=== PATIENT | female | born 1930 | race Caucasian/White ===

== ENCOUNTER 2016-11-29 22:59 | Inpatient (IN) ==
[2016-11-30 00:24] LABS: Basophils # 0.1 K/mcL (0.0-0.2); Basophils % 0.5 %; Eosinophils # 0.1 K/mcL (0.0-0.6); Eosinophils % 1.4 %; Hematocrit 43.4 % (35.3-44.9); Hemoglobin 13.8 g/dL (11.5-15.4); Immature Granulocytes % 0.2 % (0-4); Immature Platelets 3.4 % (1.1-6.1); Lymphocytes # 2.3 K/mcL (0.6-4.6); Mean Corpuscular HGB Conc 31.8 g/dL (31.6-35.5); Mean Corpuscular Hemoglobin 29.2 pg (28.0-33.3); Mean Corpuscular Volume 91.8 fL (83.0-100.0); Mean Platelet Volume 10.1 fL (9.4-12.4); Monocytes # 0.7 K/mcL (0.0-1.3); Monocytes % 7.8 %; Neutrophils # 6.2 K/mcL (1.6-8.9); Platelet Count 273 K/mcL (140-400); Red Blood Count 4.73 M/mcL (3.82-4.97); Red Cell Distribution Width 13.5 % (11.5-14.5); Segmented Neutrophils % 66.1 %
[2016-11-30 00:31] LABS: INR 1.1; Prothrombin Time 11.8 Seconds (9.4-12.1)
[2016-11-30 00:33] LABS: Activated Partial Thrombo Time 35.9 Seconds (26.0-36.0)
[2016-11-30 00:37] LABS: Calcium 9.4 mg/dL (8.6-10.8); Potassium 4.1 mEq/L (3.5-4.5)
--- NOTE | 2016-11-30 00:39 | Emergency Department Note ---
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 Denies: chest pain, shortness of breath, syncope, near-syncope, nausea, vomiting, anxiety, diaphoresis, cough, paresthesias, muscle cramps Treatments prior to arrival: other (None) - Related Data Allergies Allergy/AdvReac Type Severity Reaction Status Date / Time No Known Allergies Allergy Verified 11/29/16 23:02 All systems ED: reviewed and negative except as stated. Constitutional: Denies: fever, chills, weakness Eyes: Denies: vision change Cardiovascular: Denies: chest pain, palpitations, dyspnea on exertion, orthopnea , edema, syncope Respiratory: Denies: cough, dyspnea Gastrointestinal: Denies: abdominal pain, nausea, vomiting Neurological: Denies: headache, weakness, numbness, paresthesias, vertigo Endocrine: Denies: fatigue Past Medical History - Past Medical History Attestation: Yes The following information was validated with the patient. Source: old records reviewed, nursing notes reviewed Medical history: Reports: hyperlipidemia, hypertension Psychiatric history: Reports: anxiety - Social History Smoking Status: Never smoker Smokeless Tobacco Status: No Alcohol use: Reports: none Drug use: Reports: none Physical Exam - General Limitations: no limitations General appearance: alert, in no apparent distress - Head Head exam: atraumatic, normocephalic, normal inspection - Eye Eye exam: Present: normal appearance, PERRL. Absent: scleral icterus, conjunctival injection, periorbital swelling - ENT ENT exam: normal exam, normal oropharynx, mucous membranes moist - Neck Neck exam: Present: normal inspection, full ROM, trachea midline. Absent: meningismus - Chest Chest inspection: Present: normal inspection - Respiratory Respiratory exam: Present: normal lung sounds bilaterally. Absent: respiratory distress, wheezes, stridor - Cardiovascular Cardiovascular exam: Present: bradycardia, irregular rhythm, systolic murmur - Abdominal Exam Abdominal exam: Present: soft, Non-Tender. Absent: distention, guarding, mass, pulsatile mass - Extremities Exam Extremities exam: Present: normal inspection, normal capillary refill. Absent: pedal edema - Expanded Lower Extremity Exam Gait: not tested/not observed - Neurological Exam Neurological exam: Present: alert - Expanded Neurological Exam Patient oriented to: Present: person, place Speech: Present: fluid speech Cranial nerves: EOM function (II, III, IV, ): Normal Motor strength - LUE: 5/5 Motor strength - RUE: 5/5 Motor strength - LLE: 5/5 Motor strength - RLE: 5/5 Coma Scale Eye Opening: Spontaneous Coma Scale Motor Response: Obeys Commands Coma Scale Verbal Response: Confused (baseline) Coma Scale Total: 14 - Psychiatric Psychiatric exam: Present: normal affect, normal mood - Skin Skin exam: Present: warm, dry, intact, normal color Course Course Narrative: Patient was sent to the ER from [facility] for evaluation of a low heart rate. She is currently having no complaints. She is pleasantly confused. I spoke with the nurse at [facility] who states that they received a copy of the patient 's EKG report from the 6th. She saw that the patient had a heart rate of 39. At that time and that the physician had written on the chart: "Asymptomatic no meds, florist manager SHREYA." The nurse checked the patient's heart rate and as it was low, she sent the patient to the ER. Patient's blood pressure is elevated as it has been in the past per her nurse. Heart rate has been in the 40s. She appears to be in complete heart block. Her chest x-ray shows mild pulmonary vascular congestion and cardiomegaly. Her labs are essentially normal with the exception of mild renal insufficiency. Her TSH is normal. Urinalysis is pending. I spoke with Dr. Figueroa regarding the best course of action for this patient. He states that since she is stable with no complaints and a normal blood pressure. It is okay to monitor her tonight and treat her blood pressure. She can be seen by the driver's education instructor in the morning and will most likely have a pacemaker placed tomorrow. The case has been discussed with Dr. Mike welsh. She has seen the patient, reviewed the EKG and lab findings and agrees with the assessment and plan. - Consultations Consultation #1: The case was discussed with Dr. Figueroa, the florist manager on-call. He states that since the patient is currently stable with a normal blood pressure. He does not feel that she needs a temporary pacemaker at this time. He recommends that we admit the patient to the ICU. He agrees with the plan to use lisinopril to treat her blood pressure as it is currently elevated. Time: 01:57 Vital Signs Temperature 97.5 F L 11/29/16 23:02 Pulse Rate 44 11/29/16 23:02 Respiratory Rate 16 11/29/16 23:02 Blood Pressure 190/70 11/29/16 23:02 O2 Sat by Pulse Oximetry 96 11/29/16 23:02 Temperature 97.5 F L 11/29/16 23:02 Pulse Rate 37 11/30/16 00:52 Respiratory Rate 16 11/30/16 00:52 Blood Pressure 194/80 11/30/16 00:52 O2 Sat by Pulse Oximetry 96 11/30/16 00:52 Oxygen Delivery Oxygen Delivery Room Air Arrhythmia/Palpitations - Medical Records Medical records reviewed: Yes I reviewed the patient's medical records. - Lab Data Lab results reviewed: Yes I reviewed the patient's lab results. Lab results narrative: Laboratory Last Values WBC 9.4 K/mcL (4.3-11.1) 11/29/16 23:57 RBC 4.73 M/mcL (3.82-4.97) 11/29/16 23:57 Hgb 13.8 g/dL (11.5-15.4) 11/29/16 23:57 Hct 43.4 % (35.3-44.9) 11/29/16 23:57 MCV 91.8 fL (83.0-100.0) 11/29/16 23:57 MCH 29.2 pg (28.0-33.3) 11/29/16 23:57 MCHC 31.8 g/dL (31.6-35.5) 11/29/16 23:57 RDW 13.5 % (11.5-14.5) 11/29/16 23:57 Plt Count 273 K/mcL (140-400) 11/29/16 23:57 MPV 10.1 fL (9.4-12.4) 11/29/16 23:57 Immature Gran % 0.2 % (0-4) 11/29/16 23:57 Seg Neutrophils % 66.1 % 11/29/16 23:57 Lymphocytes % 24.0 % 11/29/16 23:57 Monocytes % 7.8 % 11/29/16 23:57 Eosinophils % 1.4 % 11/29/16 23:57 Basophils % 0.5 % 11/29/16 23:57 Neutrophils # 6.2 K/mcL (1.6-8.9) 11/29/16 23:57 Lymphocytes # 2.3 K/mcL (0.6-4.6) 11/29/16 23:57 Monocytes # 0.7 K/mcL (0.0-1.3) 11/29/16 23:57 Eosinophils # 0.1 K/mcL (0.0-0.6) 11/29/16 23:57 Basophils # 0.1 K/mcL (0.0-0.2) 11/29/16 23:57 Immature Plt Fraction 3.4 % (1.1-6.1) 11/29/16 23:57 PT 11.8 Seconds (9.4-12.1) 11/29/16 23:57 INR 1.1 11/29/16 23:57 APTT 35.9 Seconds (26.0-36.0) 11/29/16 23:57 Sodium 140 mEq/L (136-145) 11/29/16 23:57 Potassium 4.1 mEq/L (3.5-4.5) 11/29/16 23:57 Chloride 109 mEq/L (98-109) 11/29/16 23:57 Carbon Dioxide 19 mEq/L (19-29) 11/29/16 23:57 BUN 34 mg/dL (7-20) H 11/29/16 23:57 Creatinine 1.22 mg/dL (0.57-1.11) H 11/29/16 23:57 Est GFR ( Amer) 51 (> 60) L 11/29/16 23:57 Est GFR (Non-Af Amer) 42 (> 60) L 11/29/16 23:57 BUN/Creatinine Ratio 28 (6-26) H 11/29/16 23:57 Glucose 77 mg/dL (70-99) 11/29/16 23:57 Calculated Osmolality 296 (280-300) 11/29/16 23:57 Calcium 9.4 mg/dL (8.6-10.8) 11/29/16 23:57 Magnesium 2.3 mg/dL (1.6-2.6) 11/29/16 23:57 Troponin I 0.03 ng/mL (0-0.03) 11/29/16 23:57 TSH 0.973 mcIU/mL (0.350-4.840) 11/29/16 23:57 Result diagrams: 11/29/16 23:57 11/29/16 23:57 - Radiology Data Radiology results reviewed: Yes I reviewed the patient's radiology results. Chest X-Ray 11/30/16 23:24 IMPRESSION: 1. Findings suggestive of hiatal hernia. 2. Cardiomegaly and borderline pulmonary venous congestion D/ / Reinier Melton MD / Reinier Melton MD Interpreting Provider: Reinier Melton MD - EKG Data EKG attestation: Yes I reviewed and interpreted this EKG. EKG shows normal: sinus rhythm Rate: bradycardia Attestation Statement - Attestation Attestation: I personally interviewed and examined this patient and my medical decision- making was reviewed with the BARBARA, Abdiel Moreno I agree with the documented findings , disposition and treatment plan as described except to the extent set forth below. Patient is an 86-year-old elderly white female who is brought to us from an extended care facility with reports of slow heart rate. Patient arrives awake alert and oriented 4 in no acute distress, no signs of respiratory distress or diaphoresis. Patient has no complaints at this time she denies any chest pain pressure or heaviness, and no lightheadedness or near syncopal episodes no generalized weakness no nausea vomiting no recent illness. Patient has a history of hypertension she is on lisinopril for this. Apparently her family doctor that sees her at the custodial evaluated her and EKG 2 days ago which she was in a sinus bradycardia with rates in the 30s at that time, also with reportedly elevated blood pressures. Patient seems to have been in this rhythm for the last 2 days. Patient says she is feeling fine and has no complaints here and looking at the monitor she appears to be in third-degree heart block with AV dissociation at a rate anywhere from 35-39 bpm. Patient also has elevated blood pressure here as well. I agree with patient's physical exam findings as documented. Patient was placed on pacer pads continuous pulse ox IV saline well was established and labs were drawn and sent portal chest x-ray was obtained. Patient's labs overall are unremarkable and her chest x-ray shows just mild pulmonary vascular congestion. Patient is asymptomatic with this rhythm. At this time we went ahead and paged cardiology Dr. Lassiter was germination testing manager and agreed to consult on the patient requests admission to medicine as well as to avoid any medications that could potentially lower her heart rate. Cardiology was officially consulate from the ED to follow the patient in case she has any decline in her current status overnight. Patient will be admitted to the medicine service. Patient with third-degree heart block and elevated blood pressure. We will make attempts to contact her daughter who is her power of criminal defense attorney for healthcare in regards to admission and potential pacemaker placement. We did speak with the patient in regards to her CODE STATUS as her paperwork says full code. This was reiterated by the patient that she does want everything done at this time including CPR and mechanical ventilation if warranted.
[2016-11-30 01:09] LABS: Thyroid Stimulating Hormone 0.973 mcIU/mL (0.350-4.840)
[2016-11-30] MEDS: 0.9 % Sodium Chloride 1,000 ML IVC ONE ×2 (02:17→02:22)
[2016-11-30] MEDS ORDERED: Ondansetron 4 MG/2 ML VIAL IVP PRN ×2 (02:52→15:31)
[2016-11-30] MEDS ORDERED: Naloxone 0.4 MG/ML INJ IVP PRN ×2 (02:52→15:31)
[2016-11-30] MEDS ORDERED: Acetaminophen 325 MG TABLET PO PRN ×2 (02:52→15:31)
--- NOTE | 2016-11-30 02:56 | Internal Med History&Physical ---
Date of Encounter: 11/30/16 Time of Encounter: 02:00 Assessment and Plan (1) Third degree heart block Current visit: Yes Status: Acute Patient will be admitted as inpatient status to the ICU. Transcutaneous pacemaker pads will be applied. Patient will be monitored closely. Cardiology has been consulted. Expected to be in the hospital for at least 2 midnights. Expected discharge disposition is to the nursing facility. Patient is high risk due to risk of cardiac arrest, lethal arrhythmias. If patient becomes unstable with altered mental status, we will consider dopamine drip and will contact the banquet prep cook for transvenous pacemaker placement. (2) HTN (hypertension) Current visit: Yes Status: Chronic Uncontrolled blood pressure likely related to her bradycardia. Patient has been given lisinopril in the emergency department. Will monitor blood pressure and adjust medications accordingly. Qualifiers: Hypertension type: essential hypertension Qualified Code(s): I10 - Essential (primary) hypertension (3) Dementia Current visit: Yes Status: Chronic Patient is oriented only to self. Doubt the patient's decision-making capacity. We will likely need to involve the power of traffic law attorney regarding the decision for pacemaker placement in this patient with progressive dementia. We will consult palliative care for assistance in this matter. Qualifiers: Dementia type: unspecified type Dementia behavioral disturbance: without behavioral disturbance Qualified Code(s): F03.90 - Unspecified dementia without behavioral disturbance Internal Medicine - H&P: HPI Chief complaint: Sent from [facility] due to abnormal EKG Admitted From: Emergency Dept Plans for Post Hospital Care: Transfer [facility] Facility History of present illness: Ms. Parkinson is a 86 year old female is a resident of [facility] facility was sent to the emergency department due to low heart rate and abnormal EKG. The patient is a poor historian and the information was obtained by review of medical records and talking to the ER physician. The patient has been asymptomatic and does not have any complaints. Her recent EKG was read as having an AV block with junctional rhythm. After this was reviewed by her half-way physician, it was recommended to have the patient evaluated by cardiology SHREYA. The patient's pulse was taken and it was in the 30s with elevated blood pressure. Hence, the patient was transferred to the emergency department. In the emergency room, EKG revealed third-degree AV block. Cardiology was consulted. As the patient is asymptomatic and stable, it was recommended that the patient be admitted to ICU by the rod cup filler. Hence, the patient is being admitted. The patient denies having any chest pain, palpitations or feeling lightheaded. She denies any nausea or vomiting. Past Med Surg Social Fam HX - Past Medical History Source: old records reviewed Medical history: hyperlipidemia, hypertension Psychiatric history: anxiety - Past Surgical History Surgical History: non-contributory - Social History Smoking Status: Never smoker Smokeless Tobacco Status: No Alcohol use: none Drug use: none Occupational status: retired Current living situation: [facility] Activity Level: Independent ambulation - Additional Family History Additional family history: Reviewed; not pertinent Internal Medicine - H&P: Meds Allergies No Known Allergies Allergy (Verified 11/29/16 23:02) All Systems PM: A 10-system review of systems was performed and is negative for pertinent findings except as documented above in the HPI. Review of systems: 10 systems have been reviewed and are negative except as mentioned in the history of present illness - Constitutional Vitals: Temp Pulse Resp BP Pulse Ox 97.5 F L 36 16 170/54 98 11/29/16 23:02 11/30/16 02:24 11/30/16 02:24 11/30/16 02:24 11/30/16 02:24 Exam: Gen.: Lying in bed. No acute distress. Eyes: Pupils equal, round and reactive to light. Extraocular muscles intact. ENT: Moist mucous membranes. No oropharyngeal erythema or discharge. Chest: Clear to auscultation bilaterally. No adventitious sounds present. CVS: First and second heart sounds present. No murmurs, rubs or gallops. Bradycardia present. Abdomen: Soft, nontender, nondistended. Bowel sounds present. No hepatosplenomegaly. Skin: No decubitus ulcers appreciated. HOSPITAL CLEANING SPECIALIST: No focal neuro deficits present. Psychiatric: Alert, awake and oriented to self only Lymphatic system: No lymphadenopathy appreciated Internal Med - H&P Results - Labs CBC & Chem 7: 11/29/16 23:57 11/29/16 23:57 - EKG Data -: EKG Interpreted by Myself Rate: bradycardia (third-degree AV block with junctional escape rhythm) - Impressions ITS Impressions Chest X-Ray 11/30/16 23:24 IMPRESSION: 1. Findings suggestive of hiatal hernia. 2. Cardiomegaly and borderline pulmonary venous congestion D/ / Reinier Melton MD / Reinier Melton MD Interpreting Provider: Reinier Melton MD - Diagnostic Studies Chest x-ray Status: image reviewed by me (Cardiomegaly. No acute infiltrates seen.)
[2016-11-30] MEDS ORDERED: *HR* Heparin 5,000 UNIT/ML VIAL SQ SCH (08:00)
--- NOTE | 2016-11-30 10:52 | Cardiology Consult Note ---
Date of Encounter: 11/30/16 Time of Encounter: 10:36 Assessment and Plan (1) Third degree heart block Current Visit: Yes Status: Acute Resident and attending physician discussed with Ms. Parkinson the life threatening nature of her low heart rate/heart block and recommended pacemaker placement. Patient was oriented to person and place and able to participate in the discussion. She seemed to understand the need for pacemaker however stated she would like to discuss this with her children first. We feel she possesses the mental capacity to make this decision in conjunction with her family members and this could be performed tomorrow pending consent (2) HTN (hypertension) Current Visit: Yes Status: Chronic Continue Lisinopril Qualifiers: Hypertension type: essential hypertension Qualified Code(s): I10 - Essential (primary) hypertension Discussion w patient/family: The assessment and plan as outlined above was discussed with the patient and/or family members who expressed understanding and agreement. All questions were answered. Thank you for involving us in the care of your patient. Please call with any questions. History of Present Illness Consult date: 11/30/16 Consult reason: Third Degree AV Block Chief complaint: Third Degree AV Block History of present illness: Ms. Parkinson is a 86 year old female resident of [facility] who was reportedly having heart rate in the 30s. Outpatient EKG showed third- degree AV block and she was sent to the ED where repeat EKG confirmed complete heart block. Patient was also hypertensive at 194/80 but asymptomatic. Potassium was 4.1 and TSH normal at 0.97. Troponin I = 0.03, Ca+, Mg+ both normal. She is on lisinopril 10 mg daily at home, no beta blockers, CCBs, or digoxin. Patient was stable upon evaluation this morning with HR remaining in mid 30s. She has reportedly been combative and refusing treatment but transcutaneous pads were placed and she eventually allowed telemetry Past Med Surg Social Fam HX - Past Medical History Medical history: hyperlipidemia, hypertension Psychiatric history: anxiety - Past Surgical History Surgical History: non-contributory - Social History Smoking Status: Never smoker Smokeless Tobacco Status: No Alcohol use: none Drug use: none Medications and Allergies Docusate Sodium [Dok] 100 mg PO DAILY PRN 11/30/16 [History] Donepezil [Aricept] 10 mg PO DAILY 11/30/16 [History] LORazepam [Ativan] 1 mg PO DAILY PRN 11/30/16 [History] Lisinopril [Zestril] 5 mg PO DAILY 11/30/16 [History] Memantine HCl [Memantine HCl] 10 mg PO DAILY 11/30/16 [History] Pravastatin Sodium [Pravachol] 20 mg PO DAILY 11/30/16 [History] Allergies No Known Allergies Allergy (Verified 11/29/16 23:02) All Systems Review: A 10-system review of systems was performed and is negative for pertinent findings except as documented above in the HPI. - Constitutional Constitutional: no chills, no fever(s) - Cardiovascular Cardiovascular: no chest pain at rest, no chest pain with exertion, no dyspnea at rest, no dyspnea on exertion, no lightheadedness, no palpitations - Respiratory Respiratory: no cough, no dyspnea, no wheezing Physical Examination Vital Signs, Last 4 Hours Temp Pulse 11/30/16 08:25 34 11/30/16 08:16 97.7 F General: Conversant, No Apparent Distress Cardiac: Normal S1 and S2, No Murmur, Other (bradycardic) Lungs: Normal Breath Sounds, No Wheeze, Rales, Rhonchi Neuro: Alert and responsive Results 11/29/16 23:57 11/29/16 23:57 Consult Discharge Plan - Plan Referrals: NO,PCP [Primary Care Provider] -
--- NOTE | 2016-11-30 11:55 | Internal Med Progress Note ---
Date of Encounter: 11/30/16 Time of Encounter: 08:15 - Assessment and plan (1) Third degree heart block Current Visit: Yes Status: Acute Assessment and plan: will need pacemaker, cardiology following, need to discuss with family before procedure. (2) HTN (hypertension) Current Visit: Yes Status: Chronic Assessment and plan: uncontrolled. continue home meds Qualifiers: Hypertension type: essential hypertension Qualified Code(s): I10 - Essential (primary) hypertension (3) Dementia Current Visit: Yes Status: Chronic Assessment and plan: stephanieley advanced with behavioral disturbances, probably alzheimer's Qualifiers: Dementia type: unspecified type Dementia behavioral disturbance: without behavioral disturbance Qualified Code(s): F03.90 - Unspecified dementia without behavioral disturbance - Time Spent With Patient 25 - 35 minutes - Subjective Interval history: Patient is awake and alert. Seems confused. Probable advanced dementia. Able to verbalize. No fever. Denies chest pain or shortness of breath. Continues to be bradycardic. Cardiology following. No other acute events. - Constitutional Vitals: Temp Pulse Resp BP Pulse Ox 97.5 F L 34 16 0/0 98 11/30/16 11:51 11/30/16 08:25 11/30/16 03:43 11/30/16 03:43 11/30/16 02:24 General appearance: Present: A&O X 1, no acute distress, underweight, answers questions appropriately Exam: confused, likely advanced dementia - Head Head exam: Present: atraumatic - ENT ENT exam: Present: mucous membranes moist - Neck Neck exam general surgery: Present: supple - Respiratory Respiratory exam: Present: CTAB. Absent: rhonchi, wheezes - Cardiovascular Cardiovascular exam: Present: bradycardia, +S1, +S2 - GI/Abdominal GI/Abdominal exam: Present: soft. Absent: guarding, tenderness - Extremities Exam Extremities exam: Present: radial pulses palpable and symetrical. Absent: cyanotic, pedal edema - Neurological Exam Neurological exam: Present: alert, no focal deficits. Absent: speech deficit Additional comments: likely advanced dementia, awake and alert, follows verbal commands, able to verbalize Internal Medicine: Result - Labs CBC & Chem 7: 11/29/16 23:57 11/29/16 23:57 - ABG Interpretation ABG results: PT/INR, D-dimer PT 11.8 Seconds (9.4-12.1) 11/29/16 23:57 - Impressions Impressions Chest X-Ray 11/30/16 23:24 IMPRESSION: 1. Findings suggestive of hiatal hernia. 2. Cardiomegaly and borderline pulmonary venous congestion D/ / Reinier Melton MD / Reinier Melton MD Interpreting Provider: Reinier Melton MD Consult Discharge Plan - Plan Referrals: NO,PCP [Primary Care Provider] -
--- NOTE | 2016-11-30 15:37 | Electrocardiograph Report ---
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
--- NOTE | 2016-11-30 15:41 | Electrocardiograph Report ---
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
[2016-11-30] MEDS: *HR* Heparin 5,000 UNIT/ML VIAL SQ SCH ×2 (15:54→22:11)
[2016-12-01] MEDS: *HR* Heparin 5,000 UNIT/ML VIAL SQ SCH ×3 (05:27→22:06)
[2016-12-01 14:01] LABS: Bilirubin,Urine Small (Negative); Blood,Urine Trace-intact (Negative); Clarity,Urine Clear (Clear); Color,Urine Yellow (Yellow); Glucose,Urine (UA) Normal (Normal); Ketones,Urine 15 mg/dL (Negative); Leukocyte Esterase,Urine Small (Negative); Nitrite,Urine Negative (Negative); PH,Urine >=9.0 pH Units (5.0-8.0); Protein,Urine >=300 mg/dL (Neg-Trace); Specific Gravity,Urine 1.015 (1.010-1.025); Urobilinogen,Urine Normal (Normal)
[2016-12-01 14:18] LABS: Squamous Epithelial Cell,Urine Few per lpf (None-Few); Transitional Epi Cells,Urine Few per hpf (None-Few)
[2016-12-01 14:19] LABS: Bacteria,Urine Many per hpf (None-Few); RBC,Urine 0-3 per hpf (0-3)
[2016-12-01 14:20] LABS: WBC,Urine 15-30 per hpf (0-3)
--- NOTE | 2016-12-01 15:23 | Consult Note ---
Date of Encounter: 12/01/16 Time of Encounter: 14:30 Assessment & Recommendation (1) Dementia Current visit: Yes Status: Chronic Assessment & Recommendation: Case was discussed with the attending physician and nursing staff and the patient's daughter. 1. If this procedure is a life saving procedure, two attending physicians should document the necessity of the procedure to keep patient alive. Procedure can be done without need for consent from the patient 2. Following the procedure social media community manager Should file an application for emergency guardianship with the courts 3. Family meeting with the attending physician and tv host to explain the procedure and alternatives is recommended to help the family make a decision as a family. 4. Referring the case to Ethics committee of the hospital is recommended. Thank you for consultation and please address any questions. Qualifiers: Dementia type: Alzheimer's disease Alzheimer's disease onset: late-onset Dementia behavioral disturbance: with behavioral disturbance Qualified Code(s) : G30.1 - Alzheimer's disease with late onset; F02.81 - Dementia in other diseases classified elsewhere with behavioral disturbance History of Present Illness Patient: new to practice Requesting Physician: Chasity Titus Reason for consult: Dementia, competency to consent History of present illness: Ms. Parkinson is a 86 year old female admitted to the hospital from care home to evaluate and treats bradycardia. Current diagnosis after cardiology consult is third degree AV block or completed part heart block . Cardiology recommendation is to place permanent pacemaker on an urgent basis. Psychiatry was consulted to evaluate patient history of dementia and her ability to make decision. Patient's daughter reported that she was diagnosed with dementia about 10 years ago, during that time she was placed in assisted living and now she is placed in a care home. One of her children has power of tax associate attorney for finance, there is no [facility] power of tax associate attorney on file at this time. Nursing staff reported to me that patient initially was agreeable to procedure then she changed her mind and the children are divided between agreement and disagreement on the procedure. This is a challenging legal and ethical situation for the treatment team. On interview the patient presented as pleasant elderly woman she was alert and awake she was resistant to medical care not allowing the nurse to check her pulse, when I explained to her that her heart is beating slowly she argued with me that her pulse is very good and she can count it herself. She was not agitated but she was irritable. CC: Chasity Titus Past Med Surg Social Fam HX - Past Medical History Medical history: hyperlipidemia, hypertension - Past Surgical History Surgical History: non-contributory - Social History Smoking Status: Never smoker Smokeless Tobacco Status: No Alcohol use: none Drug use: none Medications & Allergies Docusate Sodium [Dok] 100 mg PO DAILY PRN 11/30/16 [History] Donepezil [Aricept] 10 mg PO DAILY 11/30/16 [History] LORazepam [Ativan] 1 mg PO DAILY PRN 11/30/16 [History] Lisinopril [Zestril] 5 mg PO DAILY 11/30/16 [History] Memantine HCl [Memantine HCl] 10 mg PO DAILY 11/30/16 [History] Pravastatin Sodium [Pravachol] 20 mg PO DAILY 11/30/16 [History] Allergies No Known Allergies Allergy (Verified 11/29/16 23:02) Mental Status Exam Patient orientation: Yes Person, Yes Place Level of alertness: Alert, Sedated Patient appearance: Appropriate, Well Groomed Behavior: calm, cooperative, anxious, suspicious Psychomotor activity: Slowed Eye contact: Fleeting Contact Mood description: Anxious, Labile, Irritable Affect description: congruent with mood, labile Speech pattern: Normal rate, Normal rhythm, Normal tone, Inappropriate to situation Speech volume: Normal Thought process: Circumstantial, Tangential Thought content: No Suicidal ideation, No Homicidal ideation, No Overt delusions Perceptual disturbances: No Auditory hallucinations, No Visual hallucinations Attention span: Capable of Focused Attention, Unable to Focus Memory description: Immediate Impaired, Recent Impaired, Remote Impaired Patient reliability: Not Reliable Historian Intelligence estimate: Average Judgment: Limited Insight: Partial Results - Vital Signs Vital signs: Temp Pulse Resp BP Pulse Ox 97.6 F 34 16 169/55 95 12/01/16 11:05 12/01/16 12:00 12/01/16 11:05 12/01/16 11:05 12/01/16 11:05 - Labs Labs: Laboratory Last Values WBC 9.4 K/mcL (4.3-11.1) 11/29/16 23:57 RBC 4.73 M/mcL (3.82-4.97) 11/29/16 23:57 Hgb 13.8 g/dL (11.5-15.4) 11/29/16 23:57 Hct 43.4 % (35.3-44.9) 11/29/16 23:57 MCV 91.8 fL (83.0-100.0) 11/29/16 23:57 MCH 29.2 pg (28.0-33.3) 11/29/16 23:57 MCHC 31.8 g/dL (31.6-35.5) 11/29/16 23:57 RDW 13.5 % (11.5-14.5) 11/29/16 23:57 Plt Count 273 K/mcL (140-400) 11/29/16 23:57 MPV 10.1 fL (9.4-12.4) 11/29/16 23:57 Immature Gran % 0.2 % (0-4) 11/29/16 23:57 Seg Neutrophils % 66.1 % 11/29/16 23:57 Lymphocytes % 24.0 % 11/29/16 23:57 Monocytes % 7.8 % 11/29/16 23:57 Eosinophils % 1.4 % 11/29/16 23:57 Basophils % 0.5 % 11/29/16 23:57 Neutrophils # 6.2 K/mcL (1.6-8.9) 11/29/16 23:57 Lymphocytes # 2.3 K/mcL (0.6-4.6) 11/29/16 23:57 Monocytes # 0.7 K/mcL (0.0-1.3) 11/29/16 23:57 Eosinophils # 0.1 K/mcL (0.0-0.6) 11/29/16 23:57 Basophils # 0.1 K/mcL (0.0-0.2) 11/29/16 23:57 Immature Plt Fraction 3.4 % (1.1-6.1) 11/29/16 23:57 PT 11.8 Seconds (9.4-12.1) 11/29/16 23:57 INR 1.1 11/29/16 23:57 APTT 35.9 Seconds (26.0-36.0) 11/29/16 23:57 Sodium 140 mEq/L (136-145) 11/29/16 23:57 Potassium 4.1 mEq/L (3.5-4.5) 11/29/16 23:57 Chloride 109 mEq/L (98-109) 11/29/16 23:57 Carbon Dioxide 19 mEq/L (19-29) 11/29/16 23:57 BUN 34 mg/dL (7-20) H 11/29/16 23:57 Creatinine 1.22 mg/dL (0.57-1.11) H 11/29/16 23:57 Est GFR ( Amer) 51 (> 60) L 11/29/16 23:57 Est GFR (Non-Af Amer) 42 (> 60) L 11/29/16 23:57 BUN/Creatinine Ratio 28 (6-26) H 11/29/16 23:57 Glucose 77 mg/dL (70-99) 11/29/16 23:57 Calculated Osmolality 296 (280-300) 11/29/16 23:57 Calcium 9.4 mg/dL (8.6-10.8) 11/29/16 23:57 Magnesium 2.3 mg/dL (1.6-2.6) 11/29/16 23:57 Troponin I 0.03 ng/mL (0-0.03) 11/29/16 23:57 B-Natriuretic Peptide 198 pg/mL (0-100) H 11/30/16 00:16 TSH 0.973 mcIU/mL (0.350-4.840) 11/29/16 23:57 Urine Color Yellow (Yellow) 12/01/16 13:50 Urine Clarity Clear (Clear) 12/01/16 13:50 Urine pH >=9.0 pH Units (5.0-8.0) H 12/01/16 13:50 Ur Specific [place] 1.015 (1.010-1.025) 12/01/16 13:50 Urine Protein >=300 mg/dL (Neg-Trace) H 12/01/16 13:50 Urine Glucose (UA) Normal mg/dL (Normal) 12/01/16 13:50 Urine Ketones 15 mg/dL (Negative) H 12/01/16 13:50 Urine Blood Trace-intact (Negative) H 12/01/16 13:50 Urine Nitrite Negative (Negative) 12/01/16 13:50 Urine Bilirubin Small (Negative) H 12/01/16 13:50 Urine Urobilinogen Normal mg/dL (Normal) 12/01/16 13:50 Ur Leukocyte Esterase Small (Negative) H 12/01/16 13:50 Urine Microscopic RBC 0-3 per hpf (0-3) 12/01/16 13:50 Urine Microscopic WBC 15-30 per hpf (0-3) H 12/01/16 13:50 Ur Squamous Epith Cells Few per lpf (None-Few) 12/01/16 13:50 Ur Transition Epith Cell Few per hpf (None-Few) 12/01/16 13:50 Urine Bacteria Many per hpf (None-Few) H 12/01/16 13:50 Ur Culture Indicated? YES (NO) A 12/01/16 13:50 Specimen Rejected Hemolyzed 12/01/16 11:04 Consult Discharge Plan - Plan Referrals: NO,PCP [Primary Care Provider] -
--- NOTE | 2016-12-01 15:39 | Internal Med Progress Note ---
Date of Encounter: 12/01/16 Time of Encounter: 08:20 - Assessment and plan (1) Third degree heart block Current Visit: Yes Status: Acute Assessment and plan: needs PPM cardiology following Hold BB Family and patient not willing for procedure at this time Will need palliative care evaluation (2) HTN (hypertension) Current Visit: Yes Status: Chronic Assessment and plan: uncontrolled. continue home meds Qualifiers: Hypertension type: essential hypertension Qualified Code(s): I10 - Essential (primary) hypertension (3) Dementia Current Visit: Yes Status: Chronic Assessment and plan: advanced with behavioral disturbances, probably alzheimer's Psych recommendations reviewed Awaiting palliative care to evaluate Qualifiers: Dementia type: unspecified type Dementia behavioral disturbance: without behavioral disturbance Qualified Code(s): F03.90 - Unspecified dementia without behavioral disturbance - Time Spent With Patient less than 15 minutes - Subjective Interval history: Patient is awake and alert. Advanced dementia. Able to verbalize. No fever. Denies chest pain or shortness of breath. Continues to be bradycardic. Cardiology following. No other acute events. Family and patient have now decided against pacemaker placement. Palliative care will evaluate patient today. - Constitutional Vitals: Temp Pulse Resp BP Pulse Ox 97.6 F 34 16 169/55 95 12/01/16 11:05 12/01/16 12:00 12/01/16 11:05 12/01/16 11:05 12/01/16 11:05 General appearance: Present: A&O X 1, no acute distress, underweight, answers questions appropriately - Head Head exam: Present: atraumatic - ENT ENT exam: Present: mucous membranes dry - Neck Neck exam general surgery: Present: supple - Respiratory Respiratory exam: Present: CTAB. Absent: rhonchi, wheezes - Cardiovascular Cardiovascular exam: Present: bradycardia, +S1, +S2 - GI/Abdominal GI/Abdominal exam: Present: soft. Absent: guarding, tenderness - Extremities Exam Extremities exam: Present: radial pulses palpable and symetrical. Absent: cyanotic, pedal edema - Neurological Exam Neurological exam: Present: alert, no focal deficits Additional comments: awake, follows simple verbal commands, able to move extremities, able to verbalize Internal Medicine: Result - Labs CBC & Chem 7: 11/29/16 23:57 11/29/16 23:57 Labs: Urine 12/01/16 Range/Units 13:50 Urine Color Yellow (Yellow) Urine Clarity Clear (Clear) Urine pH >=9.0 H (5.0-8.0) pH Units Ur Specific [place] 1.015 (1.010-1.025) Urine Protein >=300 H (Neg-Trace) mg/dL Urine Glucose (UA) Normal (Normal) mg/dL - ABG Interpretation ABG results: PT/INR, D-dimer PT 11.8 Seconds (9.4-12.1) 11/29/16 23:57 Consult Discharge Plan - Plan Referrals: NO,PCP [Primary Care Provider] -
--- NOTE | 2016-12-01 16:53 | Palliative - Consult Note ---
Date of Encounter: 12/02/16 Time of Encounter: 16:50 - Assessment and Plan (1) Counseling regarding advanced care planning and goals of care Current Visit: Yes Status: Acute Assessment and plan: Discussion with the patient's children (Mary Sexton and Joseph Sexton) regarding goals of care. Her children support a conservative approach to her cardiac care and have elected to forego a pacemaker at this time. Will contact additional siblings this evening to gather a consensus. Further discharge plan of care pending family decisions. Ms. Parkinson does not have a designated healthcare POA and lack capacity to make medical decisions. Update: Phone calls with remaining 4 children. All children are in agreement with goal of care and comfort measures. Code status DNR-CC. Ms. Parkinson will return [facility] with [facility] referral for [facility] hospice. Conversations via telephone: Branden Darshan @ 5:15pm Israel Sexton @ 5:28pm Gabriel Sexton @ 5:54pm Bryson Sexton @ 8:53pm (2) Third degree heart block Current Visit: Yes Status: Acute Assessment and plan: Cardiology following-Please see their note for conversation details. (3) Dementia Current Visit: Yes Status: Chronic Assessment and plan: Patient with 1:1 sitter at this time. Qualifiers: Dementia type: unspecified type Dementia behavioral disturbance: without behavioral disturbance Qualified Code(s): F03.90 - Unspecified dementia without behavioral disturbance Palliative-CN HPI - Data of Consult Patient: new to practice Consult date: 12/01/16 Requesting Physician: Chasity Titus Primary Care Provider: PCP NO - Consult Narrative Palliative Care/Comfort Measures: Palliative care Reason for consult: Goals of Care History of present illness: Ms. Parkinson is a 86 year old female patient presenting to the emergency department with low heart rate. She was found to be in a third degree heart block and was admitted for further work-up. Cardiology was consulted and kizzy had planned for an PPM. After meeting with her children and further assessing the patient's mental capacity, that procedure was put on hold. Ms. Parkinson had insisted on returning to her home and being discharged from the hospital as soon as possible. Cardiology had a family meeting with 2 out of her 6 children at bedside to discuss risks and benefits of PPM. Her children ( Joseph and Mary Sexton) indicated that they and their siblings are not in favor of PPM and would like her to return to her prior living situation. Palliative care was consulted to assist with goals of care planning. CC: Chasity Titus Past Med Surg Social Fam HX - Past Medical History Medical history: hyperlipidemia, hypertension Psychiatric history: anxiety - Past Surgical History Surgical History: non-contributory - Social History Smoking Status: Never smoker Smokeless Tobacco Status: No Alcohol use: none Drug use: none Medications and Allergies Docusate Sodium [Dok] 100 mg PO DAILY PRN 11/30/16 [History] Donepezil [Aricept] 10 mg PO DAILY 11/30/16 [History] LORazepam [Ativan] 1 mg PO DAILY PRN 11/30/16 [History] Lisinopril [Zestril] 5 mg PO DAILY 11/30/16 [History] Memantine HCl [Memantine HCl] 10 mg PO DAILY 11/30/16 [History] Pravastatin Sodium [Pravachol] 20 mg PO DAILY 11/30/16 [History] Allergies No Known Allergies Allergy (Verified 11/29/16 23:02) All systems: reviewed and no additional remarkable complaints except as stated ( Ms. Parkinson denies chest pain, shortness of breath, palpitations, abdominal pain/discomfort, voiding difficulties. More extensive ROS limited due to patient participation.) Palliative Care-Exam - Constitutional Vitals: Temp Pulse Resp BP Pulse Ox 97.6 F 34 16 169/55 95 12/01/16 11:05 12/01/16 16:00 12/01/16 11:05 12/01/16 11:05 12/01/16 11:05 Exam: 86 year old female, thin, somewhat cooperative, oriented to person with inappropriate responses. - Head Head Exam: Present: atraumatic - Eye Eye exam: Present: EOMI Pupils: Present: PERRL - ENT ENT exam: Present: mucous membranes dry - Respiratory Respiratory exam: Absent: accessory muscle use, respiratory distress - Cardiovascular Cardiovascular exam: Present: bradycardia Additional comments: third degree heart block - GI/Abdominal Exam GI/Abdominal exam: Present: normal bowel sounds, soft. Absent: tenderness - Extremities Exam Extremities exam: Present: normal inspection - Neurological Exam Neurological exam: Present: alert (oriented to person only) - Psychiatric Psychiatric exam: Present: agitated - Skin Skin exam: Present: dry, warm Internal Medicine - CN: Reslt - Labs CBC & Chem 7: 11/29/16 23:57 11/29/16 23:57 Labs: Urine 12/01/16 Range/Units 13:50 Urine Color Yellow (Yellow) Urine Clarity Clear (Clear) Urine pH >=9.0 H (5.0-8.0) pH Units Ur Specific [place] 1.015 (1.010-1.025) Urine Protein >=300 H (Neg-Trace) mg/dL Urine Glucose (UA) Normal (Normal) mg/dL - ABG Interpretation ABG results: PT/INR, D-dimer PT 11.8 Seconds (9.4-12.1) 11/29/16 23:57 Consult Discharge Plan - Plan Referrals: NO,PCP [Primary Care Provider] - Palliative Quality Palliative Quality: Screen for Code Status: Yes, Screen for Goals of Care: Yes, Screen for Pain: Yes, If Pain Regimen Started, Initiate Bowel Regimen: NA, Screen for Nausea/Vomitting: Yes Code Status: 11/30/16 02:52 Resuscitation Status: Active [RES] Routine Comment: Resuscitation Status: Full Code
--- NOTE | 2016-12-01 17:38 | Event Note ---
Date of Encounter: 12/01/16 Time of Encounter: 16:00 - Cardiology Event Note Patient continues to have waxing and waning mental status with episodes of agitation. She does not remember meeting me yesterday or the conversation I had with her regarding her very slow heart rate and need for pacemaker. Today, she reports that she does not want a pacemaker. I explained to her that her condition will likely worsen and lead to . She expressed understanding. However, in my opinion she does not have capacity to make her own medical decisions. I spoke with her children at her bedside. Her son Joseph and daughter Mary reported to me that all 6 of her children have discussed the situation and they all agree that they do not want her to have a pacemaker. They understand that her condition is very serious and will progress and lead to . They report that she currently does not have a good quality of life. They are concerned that she will not be able to follow post-pacemaker instructions and will pick at the bandages and her incision, possibly causing an infection or other complications. They do not want to cause her any suffering. Marce Chinchilla from the palliative medicine team arrived during my conversation with Joseph and Mary. She was going to contact all 6 children to make sure everyone was in agreement. We should respect the wishes of the patient and the family. No further testing or interventions should be performed from a cardiology standpoint. Further management should be per the recommendations of the palliative medicine service. If there are any further questions from a cardiology standpoint, please call me. Ahsan Smith MD, FACC
[2016-12-01 23:13] VITALS: BP 163/57
[2016-12-02] MEDS: *HR* Heparin 5,000 UNIT/ML VIAL SQ SCH (06:21)
--- NOTE | 2016-12-02 09:44 | Discharge Summary ---
Date of Encounter: 12/02/16 Time of Encounter: 08:30 - Discharge Diagnosis (1) Counseling regarding advanced care planning and goals of care Priority: Primary Status: Acute Comments: Palliative care has discussed extensively with patient and all immediate family members including son, daughter and siblings. Family wants comfort measures only. Everyone is in agreement with goals of care. Poor prognosis. Code status DNR-CC. [facility] with referral to hosp[facility] care. (2) Third degree heart block Priority: Primary Status: Acute Comments: Needs PPM. Patient and family have decided against having PPM placement. Family and patient in agreement about DNR/DNI status with referral to hosp[facility] care at [facility]. (3) HTN (hypertension) Priority: Secondary Status: Chronic Qualifiers: Hypertension type: essential hypertension Qualified Code(s): I10 - Essential (primary) hypertension (4) Dementia Priority: Secondary Status: Chronic Comments: Advanced dementia with behavioral disturbances, probably alzheimer's Psych recommendations reviewed Qualifiers: Dementia type: Alzheimer's disease Alzheimer's disease onset: unspecified onset Dementia behavioral disturbance: with behavioral disturbance Qualified Code(s): G30.8 - Other Alzheimer's disease; F02.81 - Dementia in other diseases classified elsewhere with behavioral disturbance - Discharge Medications Home Medications: Docusate Sodium [Dok] 100 mg PO DAILY PRN 11/30/16 [History] Donepezil [Aricept] 10 mg PO DAILY 11/30/16 [History] LORazepam [Ativan] 1 mg PO DAILY PRN 11/30/16 [History] Memantine HCl 10 mg PO DAILY 11/30/16 [History] Pravastatin Sodium [Pravachol] 20 mg PO DAILY 11/30/16 [History] Acetaminophen [Tylenol] 650 mg PO Q6HR PRN #0 tablet 12/02/16 [Rx] Lisinopril [Zestril] 10 mg PO DAILY tablet 12/02/16 [Rx] Allergies/Adverse Reactions: Allergies No Known Allergies Allergy (Verified 11/29/16 23:02) Procedures/tests Complete & Pending: Procedures Performed prior 72 hours Category Date Time Status ECG 12 lead ECG [ECG] Routine Y 11/30/16 09:28 Completed EV echocardiogram Routine Y 12/01/16 10:07 Completed Date of admission: 11/30/16 02:39 Primary care physician: PCP NO Consults: 11/30/16 02:53 Consult to Cardiology [CONS] Routine Comment: Consulting Provider: Andry Romo Reason for Consult: 3rd degree AV block Call Completed: Yes 11/30/16 15:55 Consult to Flight Instructor [CONS] Routine Reason for SW Consult: Health care POA, Is patient compitent to sign own consent 12/01/16 11:38 Consult to Palliative Care [CONS] Routine Comment: Consulting Provider: Palliative Care Clarissa Reason for Consult: Patient has CHB, bradycardia and dementia. Confused and combative at times. Currently full code. Unsure if patient is able to make decisions or comply with post surgery care and restrictions, psych consulted. Six children decided they did not want PPM. Please help discuss code status. Thanks Call Completed: Yes 12/01/16 11:56 Consult to Psychiatry [CONS] Routine Consulting Provider: Psychiatry Clarissa Reason for Consult: Dementia, sundowning Call Completed: Yes Anticipated date of discharge: 12/02/16 - Patient Status Disposition: Hospice - Medical Facility Condition: Undetermined Functional capacity at discharge: uses cane/walker Overall status at discharge: patient is not back to baseline - Discharge Instructions Follow Up With: NO,PCP [Primary Care Provider] - - Diet and Activity Activity: resume usual activities as tolerated Diet: regular diet Hospital course: Ms. Parkinson is a 86 year old female with past medical history hyperlipidemia, hypertension. She also has advanced dementia. She presented from [facility] facility for low heart rate and abnormal EKG. Patient initially was a was unable to provide any history probably because of advanced dementia. Most of the history is obtained from medical records and the ER physician initially. Patient was found to have complete heart block and cardiology was evaluated immediately. Sarcoid was in the 30s. She did have elevated blood pressure. Patient was asymptomatic and stable. She was admitted to the ICU by hospitalist service. Patient did not have any complaints. In the ICU patient was refusing to wear telemetry. He was started for IV line out. She was confused and agitated. We had to avoid antipsychotics due to her risk of QT prolongation. Cardiology has evaluated the patient. They initially recommended permanent pacemaker. There was a long discussion with the family and patient as well. It was initially THOUGHT Patient could not make decisions on her own because of advanced dementia. Palliative care was also involved. They have discussed extensively with the family and patient. Family and patient are all in agreement. They do not want a permanent pacemaker placed. They want DO NOT RESUSCITATE DO NOT INTUBATE and comfort care status only. At this point cardiology has signed off. It was then decided patient could be discharged back to retirement facility with hospice care given her complete heart block status. Patient on the day of discharge is awake and alert. She is not in any distress. She is asymptomatic. She is ambulating independently and tolerating oral diet. She is no longer agitated and is able to verbalize well. She states she feels fine and wants to go back to [facility] today. As mentioned previously palliative care has had extensive discussion with the family and patient is being discharged to [facility] at this time but to hospice care - Time Spent with Patient Total time spent providing and/or coordinating discharge services: Less than 30 minutes - Constitutional Vitals: Temp Pulse Resp BP Pulse Ox 98.6 F 33 16 163/57 94 12/02/16 07:47 12/02/16 08:07 12/02/16 07:47 12/01/16 23:06 12/02/16 07:47 General appearance: Present: A&O X 1, no acute distress, underweight, answers questions appropriately - Head Head exam: Present: atraumatic - Neck Neck exam general surgery: Present: supple - Respiratory Respiratory exam: Present: CTAB. Absent: rhonchi, wheezes - Cardiovascular Cardiovascular exam: Present: RRR, +S1, +S2 - GI/Abdominal GI/Abdominal exam: Present: soft. Absent: guarding, tenderness - Extremities Exam Extremities exam: Present: radial pulses palpable and symetrical. Absent: cyanotic, pedal edema - Neurological Exam Neurological exam: Present: alert, no focal deficits Additional comments: able to move all extremities, able to verbalize
--- NOTE | 2016-12-02 10:03 | Physician Discharge Referral ---
ExtendedCare Referral Info Transfer To: ECF Provider in Charge after Transfer: PCP Institutional Level of Care: Skilled - Diagnosis (1) Counseling regarding advanced care planning and goals of care Priority: Primary Status: Acute (2) Third degree heart block Status: Acute (3) HTN (hypertension) Status: Chronic (4) Dementia Status: Chronic - Transfer Medications Home Medications: Docusate Sodium [Dok] 100 mg PO DAILY PRN 11/30/16 [History] Donepezil [Aricept] 10 mg PO DAILY 11/30/16 [History] LORazepam [Ativan] 1 mg PO DAILY PRN 11/30/16 [History] Memantine HCl 10 mg PO DAILY 11/30/16 [History] Pravastatin Sodium [Pravachol] 20 mg PO DAILY 11/30/16 [History] Acetaminophen [Tylenol] 650 mg PO Q6HR PRN #0 tablet 12/02/16 [Rx] Lisinopril [Zestril] 10 mg PO DAILY tablet 12/02/16 [Rx] Allergies/Adverse Reactions: Allergies No Known Allergies Allergy (Verified 11/29/16 23:02) - Respiratory Orders Smoking Cessation: Smoking cessation has been advised. For more information, call the [place] Tobacco Quit Line at 3-250-REPV-NOW. - Ancillary Orders May use pressure relief devices daily prn - Advance Directives Code Status: DNR-Comfort Care - Mobility Orders Ambulate - Treatments Skin tear care topically daily PRN per policy - Diet Orders Regular CERTIFICATION: I certify that the transfer of the above named patient to an Extended Care Facility is necessary for the continuing treatment of the diagnosis listed. The above information is true and accurate reflection of patient's current condition. Confidential - Redisclosure prohibited without a patient's written consent.
== END 2016-12-02 11:42 | disposition hospice, inpatient (51) | DRG 309 ==
LOC: EMEROO 22:59 → ICNU 11-30 02:39 → 2NNU 12-01 19:54
PROVIDERS: ADMIT Internal Medicine Sleep Medicine; ATTEND Internal Medicine